=== PATIENT | female | born 1940 | race Caucasian/White ===

== ENCOUNTER 2016-11-17 14:05 | Observation (INO) ==
--- NOTE | 2016-11-17 14:46 | Emergency Department Note ---
Disposition Clinical Impression: UTI (urinary tract infection) Disposition: Admitted As Inpatient Condition: Fair Referrals: NO,PCP [Primary Care Provider] - Forms: ED Satisfaction Letter Time of Disposition: 16:28 ([facility]) Female Urogenital HPI - General Chief complaint: ED Urogenital-Female Stated complaint: burnin privates Time Seen by Provider: 11/17/16 14:12 Source: patient, EMS Mode of arrival: ambulatory Limitations: no limitations Nursing Notes Reviewed: Yes Vital Signs Reviewed: Yes - History of Present Illness HPI Narrative: 76-year-old female presents to emergency room with burning privates patient states it lai and stings down there patient states that she has an indwelling catheter family comes to the door and states that they are supposed to be changing the catheter but the pt didn't want changes last week but the patient has not had a recent catheter exchange by the appearance of the catheter which has colonization appearance within the catheter bag tubing urine appears to be very foul discolored from catheter exchange by nursing staff patient states that she is tired she is dry she says she needs Drink water Pt Subjective Complaint: dysuria, other (ceballos cath possible occluded) Onset (ago): unknown Location: suprapubic Severity: moderate Severity scale (1-10): 5 Quality: aching Duration: constant, gradually worsening Improves with: none Worsens with: other (catheter) Urinary Symptoms: dysuria, urgency, frequency Associated symptoms: Reports: abdominal pain, weakness. Denies: nausea/vomiting , fever/chills, headaches, loss of appetite, , rash, seizure, shortness of breath, syncope - Related Data Home Medications Medication Instructions Recorded Confirmed Allopurinol [Zyloprim 100 MG] 200 mg PO DAILY 11/17/16 11/17/16 Docusate Sodium [Dok] 100 mg PO DAILY PRN 11/17/16 11/17/16 Folic Acid 1 mg PO DAILY 11/17/16 11/17/16 Iron 65 mg PO BID 11/17/16 11/17/16 Magnesium Oxide [Magnesium] 400 mg PO DAILY 11/17/16 11/17/16 Metoprolol Tartrate [Lopressor] 50 mg PO BID 11/17/16 11/17/16 Neurontin 11/17/16 Ranitidine HCl [Acid Pc Analyst] 150 mg PO DAILY 11/17/16 11/17/16 Simvastatin [Zocor] 40 mg PO HS 11/17/16 11/17/16 Zinc Sulfate 220 mg PO DAILY 11/17/16 11/17/16 Allergies Allergy/AdvReac Type Severity Reaction Status Date / Time ibuprofen [From Motrin] Allergy Flushing Verified 06/20/15 15:07 guaifenesin [From Mucinex] AdvReac Abdominal Verified 03/08/16 01:15 Pain sertraline [From Zoloft] AdvReac Depression Verified 06/20/15 15:07 sulfamethoxazole AdvReac Chest Pain Verified 06/20/15 15:07 [From Septra] trimethoprim [From Septra] AdvReac Chest Pain Verified 06/20/15 15:07 All systems ED: reviewed and negative except as stated. Review of Systems: As Per HPI Constitutional: Reports: weakness. Denies: fever, chills Eyes: Denies: eye pain ENT ED: Denies: ear pain Cardiovascular: Denies: chest pain Respiratory: Denies: cough, dyspnea, sputum production Gastrointestinal: Denies: abdominal pain, nausea, vomiting Genitourinary: Reports: urgency, dysuria, frequency, other (despite indwelling cath) Musculoskeletal: Denies: back pain Integumentary: Denies: rash Neurological: Reports: weakness Psychiatric: Denies: anxiety Endocrine: Denies: fatigue Hematological/Lymphatic: Denies: easy bleeding Allergic/Immunologic: Denies: facial swelling Past Medical History - Past Medical History Attestation: Yes The following information was validated with the patient. 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 history: Reports: no REVENUE SETTLEMENTS ADMINISTRATOR history - Social History Smoking Status: Never smoker Smokeless Tobacco Status: No Alcohol use: Reports: none Drug use: Reports: none Physical Exam - General Limitations: no limitations General appearance: alert, in no apparent distress - Head Head exam: atraumatic, normocephalic, normal inspection - Eye Eye exam: Present: normal appearance, PERRL, EOMI - ENT ENT exam: normal exam, normal oropharynx, mucous membranes moist, TM's normal bilaterally, normal external ear exam - Neck Neck exam: Present: normal inspection, full ROM, trachea midline - Chest Chest inspection: Present: normal inspection, symmetric chest wall rise - Respiratory Respiratory exam: Present: normal lung sounds bilaterally - Cardiovascular Cardiovascular exam: Present: regular rate, normal rhythm, normal heart sounds - Abdominal Exam Abdominal exam: Present: soft, Non-Tender, normal bowel sounds. Absent: mass, pulsatile mass - Expanded Upper Extremity Exam Shoulder exam: Present: normal inspection, full ROM Arm exam: Present: normal inspection, full ROM Elbow exam: Present: normal inspection, full ROM Forearm/Wrist exam: Present: normal inspection, full ROM Hand exam: Present: normal inspection, full ROM Vascular exam: Normal: capillary refill, radial pulse - Expanded Lower Extremity Exam Hip/Pelvis exam: Present: normal inspection Upper leg exam: Present: normal inspection Knee exam: Present: normal inspection Lower leg exam: Present: normal inspection, swelling Ankle exam: Present: normal inspection, swelling, other (heel pads in place) Foot/toe exam: Present: normal inspection Neurovascular/Tendon exam: Present: normal capillary refill, normal fine/light touch Gait: not tested/not observed - Back Exam Back exam: Present: normal inspection, full ROM. Absent: muscle spasm - Neurological Exam Neurological exam: Present: alert, oriented X3, CN II-XII intact, normal gait - Psychiatric Psychiatric exam: Present: normal affect, normal mood - Skin Skin exam: Present: warm, dry, intact, normal color Course Course Narrative: Patient seen and examined patient had Ceballos catheter exchanged new urinary pain A started on antibiotics with results obtained admitted for observation overnight patient and family agreeable patient improved able to eat without episodes of vomiting Vital Signs Temperature 98.0 F 11/17/16 14:07 Pulse Rate 59 11/17/16 14:07 Respiratory Rate 16 11/17/16 14:07 Blood Pressure 148/93 11/17/16 14:07 O2 Sat by Pulse Oximetry 96 11/17/16 14:07 Temperature 98.0 F 11/17/16 14:07 Pulse Rate 55 11/17/16 15:58 Respiratory Rate 16 11/17/16 15:58 Blood Pressure 163/69 11/17/16 15:58 O2 Sat by Pulse Oximetry 99 11/17/16 15:58 Oxygen Delivery Oxygen Delivery Room Air Urogenital-Female - Differential Diagnosis Likely: urinary tract infection - Medical Records Medical records reviewed: Yes I reviewed the patient's medical records. - Lab Data Lab results reviewed: Yes I reviewed the patient's lab results. Result diagrams: 11/17/16 14:50 11/17/16 14:50 Lab Results 11/17/16 11/17/16 11/17/16 Range/Units 14:45 14:50 14:50 WBC 11.4 H (4.3-11.1) K/mcL RBC 4.03 (3.82-4.97) M/mcL Hgb 12.8 (11.5-15.4) g/dL Hct 40.1 (35.3-44.9) % MCV 99.5 (83.0-100.0) fL MCH 31.8 (28.0-33.3) pg MCHC 31.9 (31.6-35.5) g/dL RDW 13.1 (11.5-14.5) % Plt Count 115 L (140-400) K/mcL MPV 12.9 H (9.4-12.4) fL Immature Gran % 0.2 (0-4) % Seg Neutrophils % 31.0 % Lymphocytes % 58.9 % Monocytes % 6.3 % Eosinophils % 3.1 % Basophils % 0.5 % Neutrophils # 3.5 (1.6-8.9) K/mcL Lymphocytes # 6.7 H (0.6-4.6) K/mcL Monocytes # 0.7 (0.0-1.3) K/mcL Eosinophils # 0.4 (0.0-0.6) K/mcL Basophils # 0.1 (0.0-0.2) K/mcL VBG Lactic Acid (0.5-2.2) mmol/L Sodium 138 (136-145) mEq/L Potassium 4.9 H (3.5-4.5) mEq/L Chloride 106 (98-109) mEq/L Carbon Dioxide 23 (19-29) mEq/L BUN 18 (7-20) mg/dL Creatinine 1.41 H (0.57-1.11) mg/dL Est GFR ( Amer) 44 L (> 60) Est GFR (Non-Af Amer) 36 L (> 60) BUN/Creatinine Ratio 13 (6-26) Glucose 108 H (70-99) mg/dL Calculated Osmolality 288 (280-300) Calcium 11.9 H (8.6-10.8) mg/dL Urine Color Yellow (Yellow) Urine Clarity Cloudy A (Clear) Urine pH 7.0 (5.0-8.0) pH Units Ur Specific Banks 1.010 (1.010-1.025) Urine Protein 100 H (Neg-Trace) mg/dL Urine Glucose (UA) Normal (Normal) mg/dL Urine Ketones Negative (Negative) mg/dL Urine Blood Moderate H (Negative) Urine Nitrite Positive A (Negative) Urine Bilirubin Negative (Negative) Urine Urobilinogen Normal (Normal) mg/dL Ur Leukocyte Esterase Large H (Negative) Urine Microscopic RBC 5-15 H (0-3) per hpf Urine Microscopic WBC TNTC H (0-3) per hpf Ur Squamous Epith Cells Few (None-Few) per lpf Urine Bacteria Many H (None-Few) per hpf Ur Culture Indicated? YES A (NO) 11/17/16 Range/Units 14:50 WBC (4.3-11.1) K/mcL RBC (3.82-4.97) M/mcL Hgb (11.5-15.4) g/dL Hct (35.3-44.9) % MCV (83.0-100.0) fL MCH (28.0-33.3) pg MCHC (31.6-35.5) g/dL RDW (11.5-14.5) % Plt Count (140-400) K/mcL MPV (9.4-12.4) fL Immature Gran % (0-4) % Seg Neutrophils % % Lymphocytes % % Monocytes % % Eosinophils % % Basophils % % Neutrophils # (1.6-8.9) K/mcL Lymphocytes # (0.6-4.6) K/mcL Monocytes # (0.0-1.3) K/mcL Eosinophils # (0.0-0.6) K/mcL Basophils # (0.0-0.2) K/mcL VBG Lactic Acid 1.8 (0.5-2.2) mmol/L Sodium (136-145) mEq/L Potassium (3.5-4.5) mEq/L Chloride (98-109) mEq/L Carbon Dioxide (19-29) mEq/L BUN (7-20) mg/dL Creatinine (0.57-1.11) mg/dL Est GFR ( Amer) (> 60) Est GFR (Non-Af Amer) (> 60) BUN/Creatinine Ratio (6-26) Glucose (70-99) mg/dL Calculated Osmolality (280-300) Calcium (8.6-10.8) mg/dL Urine Color (Yellow) Urine Clarity (Clear) Urine pH (5.0-8.0) pH Units Ur Specific Banks (1.010-1.025) Urine Protein (Neg-Trace) mg/dL Urine Glucose (UA) (Normal) mg/dL Urine Ketones (Negative) mg/dL Urine Blood (Negative) Urine Nitrite (Negative) Urine Bilirubin (Negative) Urine Urobilinogen (Normal) mg/dL Ur Leukocyte Esterase (Negative) Urine Microscopic RBC (0-3) per hpf Urine Microscopic WBC (0-3) per hpf Ur Squamous Epith Cells (None-Few) per lpf Urine Bacteria (None-Few) per hpf Ur Culture Indicated? (NO) Critical Care Time Critical Care Time: No
[2016-11-17 15:07] LABS: Basophils # 0.1 K/mcL (0.0-0.2); Basophils % 0.5 %; Eosinophils # 0.4 K/mcL (0.0-0.6); Eosinophils % 3.1 %; Hematocrit 40.1 % (35.3-44.9); Hemoglobin 12.8 g/dL (11.5-15.4); Immature Granulocytes % 0.2 % (0-4); Lymphocytes # 6.7 K/mcL (0.6-4.6); Lymphocytes % 58.9 %; Mean Corpuscular HGB Conc 31.9 g/dL (31.6-35.5); Mean Corpuscular Hemoglobin 31.8 pg (28.0-33.3); Mean Corpuscular Volume 99.5 fL (83.0-100.0); Mean Platelet Volume 12.9 fL (9.4-12.4); Monocytes # 0.7 K/mcL (0.0-1.3); Monocytes % 6.3 %; Platelet Count 115 K/mcL (140-400); Red Blood Count 4.03 M/mcL (3.82-4.97); Red Cell Distribution Width 13.1 % (11.5-14.5)
[2016-11-17 15:09] LABS: Neutrophils # 3.5 K/mcL (1.6-8.9)
[2016-11-17 15:16] LABS: Bilirubin,Urine Negative (Negative); Blood,Urine Moderate (Negative); Clarity,Urine Cloudy (Clear); Color,Urine Yellow (Yellow); Glucose,Urine (UA) Normal (Normal); Ketones,Urine Negative (Negative); Leukocyte Esterase,Urine Large (Negative); Nitrite,Urine Positive (Negative); Protein,Urine 100 mg/dL (Neg-Trace); Urobilinogen,Urine Normal (Normal)
[2016-11-17 15:21] LABS: Calcium 11.9 mg/dL (8.6-10.8); Potassium 4.9 mEq/L (3.5-4.5)
[2016-11-17] MEDS ORDERED: 0.9 % Sodium Chloride 1,000 ML IVC ONE (15:47)
[2016-11-17 15:57] LABS: Bacteria,Urine Many per hpf (None-Few); Squamous Epithelial Cell,Urine Few per lpf (None-Few); WBC,Urine TNTC per hpf (0-3)
[2016-11-17] MEDS ORDERED: Acetaminophen 325 MG TABLET PO PRN (17:01)
[2016-11-17] MEDS ORDERED: D5% in Water 1,000 ML IVC PRN (17:01)
[2016-11-17] MEDS ORDERED: *HR* Dextrose 50 % in Water (Syg) 50 ML SYRINGE IVP PRN (17:01)
[2016-11-17] MEDS ORDERED: Naloxone 0.4 MG/ML INJ IVP PRN (17:01)
[2016-11-17] MEDS ORDERED: Dextrose Gel 15 GM PO PRN ×2 (17:01)
[2016-11-17] MEDS ORDERED: Insulin LISPRO 300 UNITS/3 ML VIAL SQ SCH (21:00)
[2016-11-17] MEDS ORDERED: ALPRAZolam 0.5 MG TABLET PO PRN (22:45)
[2016-11-18 06:31] LABS: Basophils # 0.1 K/mcL (0.0-0.2); Basophils % 0.5 %; Eosinophils # 0.4 K/mcL (0.0-0.6); Eosinophils % 3.9 %; Hematocrit 37.1 % (35.3-44.9); Hemoglobin 11.6 g/dL (11.5-15.4); Immature Granulocytes % 0.2 % (0-4); Lymphocytes # 5.7 K/mcL (0.6-4.6); Lymphocytes % 57.8 %; Mean Corpuscular HGB Conc 31.3 g/dL (31.6-35.5); Mean Corpuscular Hemoglobin 31.4 pg (28.0-33.3); Mean Corpuscular Volume 100.3 fL (83.0-100.0); Mean Platelet Volume 12.1 fL (9.4-12.4); Monocytes # 0.7 K/mcL (0.0-1.3); Monocytes % 7.5 %; Red Cell Distribution Width 13.2 % (11.5-14.5); Segmented Neutrophils % 30.1 %
[2016-11-18 06:48] LABS: Calcium 11.1 mg/dL (8.6-10.8); Potassium 4.8 mEq/L (3.5-4.5)
[2016-11-18 06:52] LABS: Platelet Count 93 K/mcL (140-400)
[2016-11-18] MEDS: Insulin LISPRO 300 UNITS/3 ML VIAL SQ SCH ×2 (07:38→11:49)
[2016-11-18] MEDS ORDERED: Gabapentin 300 MG CAPSULE PO SCH (09:00)
[2016-11-18] MEDS ORDERED: Folic Acid 1 MG TABLET PO SCH (09:00)
[2016-11-18] MEDS ORDERED: Magnesium Oxide 400 MG TABLET PO SCH (09:00)
[2016-11-18] MEDS ORDERED: Famotidine 20 MG TABLET PO SCH (09:00)
[2016-11-18] MEDS ORDERED: Zinc Sulfate 220 MG CAPSULE PO SCH (09:00)
[2016-11-18 10:50] VITALS: BP 136/66
--- NOTE | 2016-11-18 12:31 | Internal Med History&Physical ---
Date of Encounter: 11/18/16 Time of Encounter: 12:05 Assessment and Plan (1) UTI (urinary tract infection) Current visit: Yes Status: Acute She was started on Rocephin through emergency room. Qualifiers: Urinary tract infection type: site unspecified Hematuria presence: with hematuria Qualified Code(s): N39.0 - Urinary tract infection, site not specified; R31.9 - Hematuria, unspecified Internal Medicine - H&P: HPI Chief complaint: Perineal burning Admitted From: Home Plans for Post Hospital Care: Home History of present illness: Ms. Powell is a 76 year old female who came to emergency room stating she had 2 week history of burning in her perineum. She has chronic indwelling Pagan for the last 2 years and is nonambulatory. She states the Pagan catheter is changed every 4 weeks. She was evaluated in emergency room and felt to have UTI. She was admitted to [facility] floor for ongoing care needs. She states she feels improved now on Bactrim baseline. Her history significant for chronic kidney disease stage III. She does not follow with a quality improvement engineer regularly. Past Med Surg Social Fam HX - Past Medical History Medical history: arthritis, cancer, CHF, COPD, coronary artery disease, diabetes , GERD, hyperlipidemia, hypertension, kidney stones, myocardial infarction, other Psychiatric history: anxiety, depression - Past Surgical History Surgical History: angioplasty/stent, other - Social History Smoking Status: Never smoker Smokeless Tobacco Status: No Alcohol use: none Drug use: none - Family History Mother Living Status: Hx Family Cardiac Disorders: Yes Hx Family Respiratory Disorders: No Hx Family Cancer: No Hx Family Endocrine Disorder: Yes Internal Medicine - H&P: Meds Allopurinol [Zyloprim 100 MG] 200 mg PO DAILY 11/17/16 [History] Docusate Sodium [Dok] 100 mg PO DAILY PRN 11/17/16 [History] Folic Acid 1 mg PO DAILY 11/17/16 [History] Iron 65 mg PO BID 11/17/16 [History] Magnesium Oxide [Magnesium] 400 mg PO DAILY 11/17/16 [History] Metoprolol Tartrate [Lopressor] 50 mg PO BID 11/17/16 [History] Neurontin 11/17/16 [History] Ranitidine HCl [Acid Endo Tech] 150 mg PO DAILY 11/17/16 [History] Simvastatin [Zocor] 40 mg PO HS 11/17/16 [History] Zinc Sulfate 220 mg PO DAILY 11/17/16 [History] Allergies ibuprofen [From Motrin] Allergy (Verified 06/20/15 15:07) Flushing guaifenesin [From Mucinex] Adverse Reaction (Verified 03/08/16 01:15) Abdominal Pain affects calcium sertraline [From Zoloft] Adverse Reaction (Verified 06/20/15 15:07) Depression sulfamethoxazole [From Septra] Adverse Reaction (Verified 06/20/15 15:07) Chest Pain trimethoprim [From Septra] Adverse Reaction (Verified 06/20/15 15:07) Chest Pain All Systems PM: A 10-system review of systems was performed and is negative for pertinent findings except as documented above in the HPI. Review of systems: Gen.: Her weight has decreased from 107.456 kg on 10/15/2015 to 99.79 kg on admission now Cardiovascular: She has history of hypertension. She has diagnosis of heart failure with an echocardiogram done 06/24/2015 at [facility] showing LVEF of 50%. There was hypokinesis of the apical septal and mid anterior septal cardenas. There was poor visualization of several other wall segments. There was indeterminate diastolic function. No significant valvular abnormalities were seen. She has known ASHD and had PTCA with a stent placed approximately 2006. She has had no further stress test or heart cath since then. She has no known DVT or pulmonary emboli history. Respiratory: She is a lifelong nonsmoker but has nocturnal hypoxemia and wears oxygen at 2 L/m by nasal cannula at home. She reports a sleep study done approximately 2014 but does not know results. GI: She has GERD but no known disorders of her liver gallbladder or exocrine pancreas. : As per history of present illness Neurologic: She denies large distribution strokes or seizures. Endocrine: She was diagnosed with DM 2 approximately age 58. She has hyperlipidemia but no known thyroid disease. She has had hypercalcemia with workup August 2015 showing possible primary and secondary hyperparathyroidism. She reports seeing a "specialist" but does not know the name of the physician or the diagnosis. She states she does not receive ongoing therapy. She receives zoledronic acid during a August 2015 hospitalization. Hematology/oncology: She was diagnosed with cervical cancer 1997. She was treated with cryosurgery which was curative. She has no other known internal malignancies. She has anemia with anemia testing done 09/17/2015 showing B12 level low at 142 and folate low at 4.5. She was treated during her hospitalization and given prescriptions discharge or supplements. She had thrombocytopenia in the past that resolved. Musk skeletal: She had right ankle fracture January 2015 with surgical repair. She has been nonweightbearing since being hospitalized at [facility] June 20 - June 25 after having a fall at home and sustaining a left tibial plateau and fibular neck fracture and an oblique right femoral shaft fracture. She was placed on Eliquis for DVT prophylaxis. She was seen by 2 orthopedists and they agreed surgery was not recommended. She does not have known gout. Psychiatric: She has anxiety and depression. - Constitutional Vitals: Temp Pulse Resp BP Pulse Ox 97.9 F 73 18 136/66 94 11/18/16 10:46 11/18/16 10:46 11/18/16 10:46 11/18/16 10:46 11/18/16 10:46 Exam: Gen.: She is a well developed well-nourished female lying in bed who appears in no acute distress HEENT: Head is atraumatic and normocephalic. Eyes: EOMI. There is no scleral icterus. Mouth: Mucosa is moist. Neck: Supple and nontender. There is no thyromegaly or adenopathy noted. Heart: Regular without murmurs gallops or ectopics Lungs: No wheezes or crackles are heard. Abdomen: Soft and nontender. No masses or guarding are noted. Extremities: There is no cyanosis edema or clubbing noted. Dorsalis pedis and posttibial pulses are trace palpable bilaterally. Neurologic: Mental status: She is talkative and a good historian. Cranial nerves: Smile is symmetric. Forehead wrinkles bilaterally. Tongue protrudes midline. EOMI. Motor: There is no pronator drift. Cerebellar: Finger to nose is intact bilaterally. Skin: Warm and dry Internal Med - H&P Results - Labs CBC & Chem 7: 11/18/16 06:22 11/18/16 06:22 Labs: Short CBC 11/18/16 Range/Units 06:22 WBC 9.9 (4.3-11.1) K/mcL Hgb 11.6 (11.5-15.4) g/dL Hct 37.1 (35.3-44.9) % Plt Count 93 L (140-400) K/mcL Neutrophils # 3.0 (1.6-8.9) K/mcL BMP 11/18/16 06:22 Sodium 138 Potassium 4.8 H Chloride 108 Carbon Dioxide 22 BUN 21 H Creatinine 1.46 H Glucose 188 H Calcium 11.1 H
--- NOTE | 2016-11-18 12:44 | Discharge Summary ---
Date of Encounter: 11/18/16 Time of Encounter: 12:05 - Discharge Diagnosis (1) UTI (urinary tract infection) Priority: Primary Status: Acute Qualifiers: Urinary tract infection type: site unspecified Hematuria presence: with hematuria Qualified Code(s): N39.0 - Urinary tract infection, site not specified; R31.9 - Hematuria, unspecified - Discharge Medications Prescriptions: Cefuroxime PO [Ceftin] 500 mg PO Q12HR #6 tablet Lactobacillus [Culturelle] 1 each PO BID #6 cap.sprink Home Medications: Allopurinol [Zyloprim 100 MG] 200 mg PO DAILY 11/17/16 [History] Docusate Sodium [Dok] 100 mg PO DAILY PRN 11/17/16 [History] Folic Acid 1 mg PO DAILY 11/17/16 [History] Iron 65 mg PO BID 11/17/16 [History] Magnesium Oxide [Magnesium] 400 mg PO DAILY 11/17/16 [History] Metoprolol Tartrate [Lopressor] 50 mg PO BID 11/17/16 [History] Neurontin 11/17/16 [History] Ranitidine HCl [Acid Community Organization Worker] 150 mg PO DAILY 11/17/16 [History] Simvastatin [Zocor] 40 mg PO HS 11/17/16 [History] Zinc Sulfate 220 mg PO DAILY 11/17/16 [History] Cefuroxime PO [Ceftin] 500 mg PO Q12HR #6 tablet 11/18/16 [Rx] Lactobacillus [Culturelle] 1 each PO BID #6 cap.sprink 11/18/16 [Rx] Allergies/Adverse Reactions: Allergies ibuprofen [From Motrin] Allergy (Verified 06/20/15 15:07) Flushing guaifenesin [From Mucinex] Adverse Reaction (Verified 03/08/16 01:15) Abdominal Pain affects calcium sertraline [From Zoloft] Adverse Reaction (Verified 06/20/15 15:07) Depression sulfamethoxazole [From Septra] Adverse Reaction (Verified 06/20/15 15:07) Chest Pain trimethoprim [From Septra] Adverse Reaction (Verified 06/20/15 15:07) Chest Pain Date of admission: 11/17/16 16:42 Primary care physician: PCP NO - Patient Status Disposition: Home Health Service Condition: Fair Functional capacity at discharge: bed bound Overall status at discharge: patient is progressing back to baseline - Discharge Instructions Follow Up With: NO,PCP [Primary Care Provider] - 1 week - Diet and Activity Activity: resume usual activities as tolerated Diet: advance to your usual diet Hospital course: Ms. Powell is a 76 year old female who came to emergency room stating she had 2 week history of burning in her perineum. She has chronic indwelling Pagan for the last 2 years and is nonambulatory. She states the Pagan catheter is changed every 4 weeks. She was evaluated in emergency room and felt to have UTI. She was admitted to [facility] for ongoing care needs. Initial orders were written by the emergency room physician. I saw her on November 18 and performed a history physical and discharge. She was given Rocephin through emergency room. Urine culture report is pending time of the discharge. When I saw her she stated her perineum discomfort had resolved and she felt back to her baseline. She wished to be discharged which I felt was reasonable. She will continue with Ceftin and probiotic for 3 additional days at discharge. She will follow with her PCP within one week. - Time Spent with Patient Total time spent providing and/or coordinating discharge services: - Constitutional Vitals: Temp Pulse Resp BP Pulse Ox 97.9 F 73 18 136/66 94 11/18/16 10:46 11/18/16 10:46 11/18/16 10:46 11/18/16 10:46 11/18/16 10:46
--- NOTE | 2016-11-18 12:46 | Physician Discharge Referral ---
Home Health/Hosp Referral Info Transfer to: Home Health Attending Provider: Heriberto Provider in Charge Post Discharge: PCP - Diagnosis (1) UTI (urinary tract infection) Priority: Primary Status: Acute - Respiratory Orders Smoking Cessation: Smoking cessation has been advised. For more information, call the [place] Tobacco Quit Line at 7-365-EJSS-NOW. - Diet/Nutrition Diet/Nutrition Orders: Regular - Activity Activity Orders: Bedrest - Services Needed Following services are medically necessary services: Nursing, Home Health Aide, Physical Therapy, Occupational Therapy - Transfer Medications Prescriptions: Cefuroxime PO [Ceftin] 500 mg PO Q12HR #6 tablet Lactobacillus [Culturelle] 1 each PO BID #6 cap.sprink Home Medications: Allopurinol [Zyloprim 100 MG] 200 mg PO DAILY 11/17/16 [History] Docusate Sodium [Dok] 100 mg PO DAILY PRN 11/17/16 [History] Folic Acid 1 mg PO DAILY 11/17/16 [History] Iron 65 mg PO BID 11/17/16 [History] Magnesium Oxide [Magnesium] 400 mg PO DAILY 11/17/16 [History] Metoprolol Tartrate [Lopressor] 50 mg PO BID 11/17/16 [History] Neurontin 11/17/16 [History] Ranitidine HCl [Acid Butcher All Round] 150 mg PO DAILY 11/17/16 [History] Simvastatin [Zocor] 40 mg PO HS 11/17/16 [History] Zinc Sulfate 220 mg PO DAILY 11/17/16 [History] Cefuroxime PO [Ceftin] 500 mg PO Q12HR #6 tablet 11/18/16 [Rx] Lactobacillus [Culturelle] 1 each PO BID #6 cap.sprink 11/18/16 [Rx] Allergies/Adverse Reactions: Allergies ibuprofen [From Motrin] Allergy (Verified 06/20/15 15:07) Flushing guaifenesin [From Mucinex] Adverse Reaction (Verified 03/08/16 01:15) Abdominal Pain affects calcium sertraline [From Zoloft] Adverse Reaction (Verified 06/20/15 15:07) Depression sulfamethoxazole [From Septra] Adverse Reaction (Verified 06/20/15 15:07) Chest Pain trimethoprim [From Septra] Adverse Reaction (Verified 06/20/15 15:07) Chest Pain Certification: Further, I certify that my clinical findings support that this patient is homebound (i.e. absences from home require considerable and taxing effort and are for medical reasons or taoist services or infrequently or short duration when for other reasons) because: Homebound Reason: Leaving home requires considerable and taxing effort due to condition (Unable to walk) Attestation: My signature below is to certify that this patient is under my care and that I, or nurse practitioner, or a physician's construction project assistant working with me, has a face-to -face encounter with this patient.
== END 2016-11-18 14:00 | disposition home health service (06) ==
LOC: INPPIK 14:05 → EMEROOPIK 14:05 → INPPIK 16:55
PROVIDERS: ADMIT Internal Medicine; ATTEND Internal Medicine